=== PATIENT | female | born 1945 | race Caucasian/White ===

== ENCOUNTER 2018-11-12 12:36 | Emergency (ER) | payer OTHER ==
[2018-11-12] MEDS ORDERED: EPINEPHrine 1 MG/10 ML SYR IV ONE (12:37)
--- NOTE | 2018-11-12 12:54 | EDPHYS ---
Physician Documentation [facility] Name: Kim Membreno Age: 73 yrs Sex: Female : 1945 Arrival Date: 11/12/2018 Time: 12:41 Bed 2 Private MD: ED Physician Agus Olvera HPI: 11/12 12:48 This 73 yrs old Female presents to ER via EMS with complaints of CPR. rn 12:48 Preceding the arrest, the patient collapsed, was found down. The arrest occurred at residential. Pre-hospital course: EMS care prior to arrival: initiation of ACLS, intubation ACLS has been in progress for 53 minutes. The patient has not experienced similar symptoms in the past. The patient has been recently seen by a physician:. Per EMS and family, CPR for 53 minutes now, no ROSC, recently admitted to [email or web address]] and discharged with sepsis, cardiac abscess, recent pacemaker placed 3 days ago, on IV abx through PICC. Family states DNR with advance directives.. Historical: - Allergies: 12:46 PENICILLINS; aj - Hospitalizations: : Patient was recently seen at. ROS: 12:48 Unable to obtain ROS due to comatose state. rn Exam: 12:48 Constitutional: This is a well developed, well nourished patient, intubated, GCS 3 rn Head/Face: Normocephalic, atraumatic. ENT: dry MM, intubated Cardiovascular: No spontaneous cardiac activity or pulse Respiratory: Agonal respirations, coarse bialteral breath sounds with bagging, foam and blood from ETT Abdomen/GI: soft, no masses Skin: Cool extremities, no pulse Neuro: GCS 3, intubated. Vital Signs: 12:46 Pulse 0 MON; Temp 98.1(R); aj 12:46 Asystole aj [place] Coma Score: 12:46 Eye Response: none(1). Verbal Response: none(1). Motor Response: none(1). Total: 3. aj Procedures: 13:21 CPR: See CPR flow sheet. Initial patient assessment: unresponsive. rn MDM: 12:48 Patient medically screened. rn 12:48 Differential diagnosis: arrythmia, cardiac arrest, respiratory arrest. Data reviewed: rn vital signs, nurses notes. Counseling: I had a detailed discussion with the patient and/or guardian regarding: the historical points, exam findings, and any diagnostic results supporting the discharge/admit diagnosis. Response to treatment: There is no appreciated change of the patient's symptoms at this time. ED course: After discussion with family, medical power of video production specialist here, and they report DNR advance directives, CPR/ACLS stopped, time of 12:39.. Administered Medications: 12:37 Drug: EPINEPHrine 0.1mg/mL 1:10,000 1 mg Route: IVP; Site: right antecubital; aj 12:52 CANCELLED (Inappropriate at this time): EPINEPHrine (PF) 1mg/mL 1:1,000 1 mg IV at aj bolus once; Do not exceed 1 mg Point of Care Testing: Blood Glucose: 12:46 Blood Glucose: 160 mg/dL; aj 12:46 Per EMS aj Ranges: Critical Glucose Levels:Adult <50 mg/dl or >400 mg/dl <40 mg/dl or >180 mg/dl Disposition: 12:48 . rn Disposition: Patient pronounced on 11/12/18 12:39 by Agus Olvera. Impression: Cardiac arrest, Pulmonary edema. - Released to Home. Signatures: Emmy Isaacs RN RN aj Nieto, Roman, MD MD rn Corrections: (The following items were deleted from the chart) 12:52 12:52 EPINEPHrine (PF) 1mg/mL 1:1,000 1 mg IV at bolus once; Do not exceed 1 mg aj ordered. aj 16:44 12:53 11/12/2018 12:53 Patient pronounced on 11/12/2018 at 12:39 by Agus Olvera. aj Impression: Cardiac arrest; Pulmonary edema. Released to Home. rn
--- NOTE | 2018-11-12 12:54 | ER ---
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 Reports aj one episode of pulseless V tach at 36 minutes post CPR. 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 Care prior to arrival: Medication(s) given: Epinephrine x 8 rounds, Sodium bicarb 50 MEQ, Calcium Chloride x 1 amp. Care prior to arrival: Oral intubation, CPR via thumper performed by EMS was defibrillated and is still in progress IV initiated. 20 GA, in the right antecubital area. Compressions began prior to arrival. 12:41 Method Of Arrival: EMS: [facility] aj 12:41 Acuity: LINDSEY 1 aj Historical: - Allergies: 12:46 PENICILLINS; aj - Hospitalizations: : Patient was recently seen at. Assessment: 12:36 CPR assessment: unresponsive. Cardiac rhythm is asystole. General: Behavior is aj unresponsive. Neuro: Level of Consciousness is unresponsive. Cardiovascular: Capillary refill is > 3 seconds in bilateral fingers toes Rhythm is asystole. Respiratory: Airway via oral intubation. GI: NGT in place. Derm: Skin is pale. 12:50 Reassessment: Time of pronounced by Dr Olvera. aj 13:14 Reassessment: [facility] case #[id number], patient is a candidate for eye and tissue aj donation. 13:41 Reassessment: Tissue bank called and stated that patient is not a candidate for tissue aj donation. 16:43 Reassessment: Picked up by [facility]. aj Vital Signs: 12:46 Pulse 0 MON; Temp 98.1(R); aj 12:46 Asystole aj [place] Coma Score: 12:46 Eye Response: none(1). Verbal Response: none(1). Motor Response: none(1). Total: 3. aj ED Course: 12:31 Intubation: 7.0 Fr. ETT. Accessed PICC line. Clean \T\ dry. Good blood return. Flushes aj easily. Maintain EMS IV. Gauge \T\ site: 20 to Right AC. 12:41 Patient arrived in ED. aj 12:44 Triage completed. aj 12:46 Bed in low position. Side rails up X2. aj 12:48 Agus Olvera MD is Attending Physician. rn 12:52 contacted fernando sultana to have residential worker call er. bd 12:53 Agus Olvera MD is Pronouncing Provider. rn 13:16 Emmy Isaacs RN is Primary Nurse. aj 14:21 notified [facility]. bd Administered Medications: 12:37 Drug: EPINEPHrine 0.1mg/mL 1:10,000 1 mg Route: IVP; Site: right antecubital; aj 12:52 CANCELLED (Inappropriate at this time): EPINEPHrine (PF) 1mg/mL 1:1,000 1 mg IV at aj bolus once; Do not exceed 1 mg Point of Care Testing: Blood Glucose: 12:46 Blood Glucose: 160 mg/dL; aj 12:46 Per EMS aj Ranges: Outcome: 12:39 Outcome Patient aj 12:39 Patient : 12:39 Condition: 16:44 Patient left the ED. aj Signatures: Misty Estrella Amanda, RN RN aj Agus Olvera MD MD rn
== END 2018-11-12 16:44 | disposition expired ==
LOC: ER 12:36
DX: I46.9 Cardiac arrest, cause unspecified (principal); J81.1 Chronic pulmonary edema; Z88.0 Allergy status to penicillin
CPT/HCPCS: 31500; 96374; 92950; 99285; J0171